=== PATIENT | male | born 2005 | race Caucasian/White ===

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

== ENCOUNTER 2025-03-21 23:41 | Inpatient (IN) | payer OTHER ==
[~2025-03-21] VITALS: Ht 182.9 cm; Wt 68.0 kg
[2025-03-22 00:30] LABS: PLATELET COUNT, AUTOMATED 304 10^3/uL (150-450)
[2025-03-22 00:51] LABS: AMPHETAMINES LEVEL URINE NEGATIVE (NEGATIVE); BARBITURATES URINE NEGATIVE (NEGATIVE); BENZODIAZEPINES URINE NEGATIVE (NEGATIVE); COCAINE METABOLITE URINE NEGATIVE (NEGATIVE); METHADONE URINE NEGATIVE (NEGATIVE); OPIATES URINE NEGATIVE (NEGATIVE); PHENCYCLIDINE URINE NEGATIVE (NEGATIVE)
[2025-03-22 00:53] LABS: CANNABINOIDS URINE POSITIVE (NEGATIVE); ETHYL ALCOHOL (ETHANOL) 0.003 % (0.000-0.010)
[2025-03-22 00:55] LABS: ALT/SGPT 12 U/L (7.0-40); AST/SGOT 16 U/L (<34); CALCIUM LEVEL 9.4 MG/DL (8.5-10.1); CARBON DIOXIDE LEVEL 26 MMOL/L (20-31); CHLORIDE LEVEL 106 MMOL/L (98-107); CREATININE FOR GFR 0.91 MG/DL (0.70-1.30); GLOMERULAR FILTRATION RATE > 90.0 (>60); POTASSIUM SERUM 4.3 MMOL/L (3.5-5.1); SALICYLATE LEVEL < 3.0 MG/DL (<30); SODIUM LEVEL 142 MMOL/L (136-145)
[2025-03-22] MEDS: NICOTINE 21 MG/24 HR 1 EA TRANSDERMAL TD ONE (05:07)
[2025-03-22] MEDS ORDERED: OLANZapine 5 MG TAB PO PRN (05:25)
[2025-03-22] MEDS ORDERED: traZODone 50 MG TAB PO PRN (05:25)
[2025-03-22] MEDS ORDERED: MAALOX 30 ML SUSP *UDC PO PRN (05:25)
[2025-03-22] MEDS ORDERED: ACETAMINOPHEN 325 MG TAB PO PRN (05:25)
[2025-03-22] MEDS ORDERED: MOM 30 ML SUSPENSION UDC PO PRN (05:25)
[2025-03-22] MEDS ORDERED: IBUPROFEN 400 MG TAB PO PRN (05:25)
[2025-03-22 05:52] VITALS: BP 140/90; TEMP 97.1; O2SAT 100
[2025-03-22] MEDS ORDERED: HOME MED LIST COMPLETE! XX SCH (10:40)
[2025-03-22 18:19] VITALS: BP 132/72; TEMP 98.9
[2025-03-22] MEDS: NICOTINE 21 MG/24 HR 1 EA TRANSDERMAL TD SCH (19:15)
[2025-03-23 06:31] VITALS: BP 132/79; TEMP 97.9; O2SAT 100
== END 2025-03-23 13:50 | disposition home or self-care (01) | DRG 755 ==
LOC: M ED 23:41 → M ED INP 03-22 05:22 → M PSY 03-22 05:45
PROVIDERS: ADMIT Psychiatry & Neurology Neurology; ATTEND Psychiatry & Neurology Neurology
DX: F43.23 Adjustment disorder with mixed anxiety and depressed mood (principal); R45.851 Suicidal ideations; F41.1 Generalized anxiety disorder; F10.10 Alcohol abuse, uncomplicated; F17.200 Nicotine dependence, unspecified, uncomplicated; F12.90 Cannabis use, unspecified, uncomplicated; R45.850 Homicidal ideations